=== PATIENT | female | born 1990 | race Caucasian/White ===

== ENCOUNTER 2017-09-26 10:08 | Emergency (ER) | payer MEDICAID, OTHER ==
[2017-09-26 10:52] LABS: BASOPHILS % (AUTO) 0.4 %; EOSINOPHILS # (AUTO) 0.3 10^3/uL (0.0-0.7); EOSINOPHILS % (AUTO) 3.6 %; HGB - HEMOGLOBIN 14.4 g/dL (12.0-16.0); LYMPHOCYTES # (AUTO) 1.9 10^3/uL (1.5-3.5); LYMPHOCYTES % (AUTO) 25.8 %; MEAN CORPUSCULAR HEMOGLOBIN 32.5 pg (27.0-31.0); MEAN CORPUSCULAR HGB CONC 34.5 g/dL (32.0-36.0); MEAN CORPUSCULAR VOLUME 94.1 fL (81.0-99.0); MEAN PLATELET VOLUME 8.3 fL (7.9-10.8); MONOCYTES # (AUTO) 0.5 10^3/uL (0.0-1.0); MONOCYTES % (AUTO) 7.6 %; NEUTROPHILS # (AUTO) 4.5 10^3/uL (1.5-6.6); NEUTROPHILS % (AUTO) 62.6 %; PLT - PLATELET COUNT 260 10^3/uL (130-450); RED BLOOD COUNT 4.44 10^6/uL (4.20-5.40); RED CELL DISTRIBUTION WIDTH 12.7 % (12.0-15.0); WHITE BLOOD COUNT 7.2 x10^3/uL (4.8-10.8)
[2017-09-26 11:04] LABS: ALBUMIN 4.3 g/dL (3.2-5.5); ALBUMIN/GLOBULIN RATIO 1.5 (1.0-2.2); BILIRUBIN,TOTAL 0.6 mg/dL (0.2-1.0); CALCIUM 8.8 mg/dL (8.5-10.3); CREATININE 0.8 mg/dL (0.4-1.0); TOTAL PROTEIN 7.1 g/dL (6.7-8.2)
--- NOTE | 2017-09-26 11:17 | ED Physician Documentation ---
PD HPI CHEST PAIN - Stated complaint Stated Complaint: CHEST/ARM/NECK NUMB - Chief complaint Chief Complaint: Cardiac - History obtained from History obtained from: Patient, Family - History of Present Illness Timing - onset: Today Timing - onset during: Rest Timing - duration: Hours Timing - details: Gradual onset, Still present Quality: Aching Location: Substernal Radiation: Neck, Back, Left upper extremity, Right upper extremity Improved by: Rest Worsened by: Exertion Similar symptoms before: Has not had sx before Recently seen: Not recently seen - Additional information Additional information: 26-year-old previously well female has developed some abdominal cramping and pain with diarrhea 1 week ago. 2 nights ago she developed some chest pressure with radiation to her arms from 2-4am and this resolved. This morning she has developed chest pain/pressure/ache radiating to both arms, back and neck and without modifying factors. She did vomit this morning. She continues to have aching in her arms. She has not had this previously. She is adopted but believes that her biologic mother in her 40's of cardiac arrest and was in poor health. Review of Systems Constitutional: reports: Fatigue. denies: Fever, Chills Eyes: denies: Decreased vision Ears: denies: Ear pain Nose: denies: Congestion, Reviewed and negative Throat: denies: Sore throat Cardiac: reports: Chest pain / pressure. 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: None : None HEENT: None Psych: Anxiety Musculoskeletal: None, Chronic back pain Derm: None - Past Surgical History Past Surgical History: No Ortho: ACL reconstruction /LONG LINE TEAMSTER: section, Tubal ligation - Present Medications Home Medications: Ambulatory Orders Medication Instructions Recorded Confirmed Famotidine [Pepcid] 20 mg 03/26/15 03/26/15 Lorazepam [Ativan] 1 mg PO TID PRN #15 tablet 09/20/15 - Allergies Allergies/Adverse Reactions: Allergies Allergy/AdvReac Type Severity Reaction Status Date / Time ibuprofen Allergy Severe Hives Verified 03/26/15 10:46 ketorolac tromethamine * Allergy Intermediate Itching Verified 03/26/15 10:46 [From Toradol] - Social History Does the pt smoke?: Yes Smoking Status: Current every day smoker Does the pt drink ETOH?: Yes Does the pt have substance abuse?: No - Immunizations Immunizations are current?: Yes - POLST Patient has POLST: No PD ED PE NORMAL - Vitals Vital signs reviewed: Yes - General General: Alert and oriented X 3, No acute distress, Well developed/nourished - HEENT HEENT: Atraumatic, PERRL, EOMI - Neck Neck: Supple, no meningeal sign, No bony TTP - Cardiac Cardiac: RRR, No murmur - Respiratory Respiratory: No respiratory distress, Clear bilaterally - Abdomen Abdomen: Soft, Non tender - Back Back: No CVA TTP, No spinal TTP - Derm Derm: Normal color, Warm and dry, No rash - Extremities Extremities: No deformity, No edema - Neuro Neuro: Alert and oriented X 3, metal organ pipe maker 2-12 intact, No motor deficit, No sensory deficit, Normal speech Eye Opening: Spontaneous Motor: Obeys Commands Verbal: Oriented GCS Score: 15 - Psych Psych: Normal mood, Normal affect Results - Vitals Vitals: Vital Signs - 24 hr 09/26/17 09/26/17 09/26/17 10:12 11:30 11:54 Temperature 36.1 C L Heart Rate 77 70 66 Respiratory 18 16 17 Rate Blood Pressure 112/89 H 101/74 O2 Saturation 100 100 100 09/26/17 12:40 Temperature Heart Rate 71 Respiratory 17 Rate Blood Pressure 114/63 O2 Saturation 100 Oxygen O2 Source Room air - EKG (time done) 1019 Rate: Rate (enter#) (64) Rhythm: NSR Ischemia: Other (Diffuse ST elevation consistent with pericarditis.) Compare to prior EKG: Old EKG unavailable Computer interpretation: Agree with computer 1339 Rate: Rate (enter#) (70) Rhythm: NSR Ischemia: ST elevation c/w repol Compare to prior EKG: Changed from prior EKG (The ST elevations are now less obvious) Computer interpretation: Disagree with computer (This still looks like pericarditis. ) - Labs Labs: Laboratory Tests 09/26/17 09/26/17 09/26/17 10:32 10:32 10:32 WBC 7.2 RBC 4.44 Hgb 14.4 Hct 41.8 MCV 94.1 MCH 32.5 H MCHC 34.5 RDW 12.7 Plt Count 260 MPV 8.3 Neut # 4.5 Lymph # 1.9 [place] # 0.5 Eos # 0.3 Baso # 0.0 Absolute Nucleated RBC 0.00 Nucleated RBC % 0.1 Sodium 136 Potassium 3.6 Chloride 104 Carbon Dioxide 24 Anion Gap 8.0 BUN 12 Creatinine 0.8 Estimated GFR (MDRD) 86 L Glucose 94 Calcium 8.8 Total Bilirubin 0.6 AST 30 ALT 25 Alkaline Phosphatase 60 Troponin I 1.66 H* Total Protein 7.1 Albumin 4.3 Globulin 2.8 Albumin/Globulin Ratio 1.5 Lipase 18 L 09/26/17 12:43 WBC RBC Hgb Hct MCV MCH MCHC RDW Plt Count MPV Neut # Lymph # [place] # Eos # Baso # Absolute Nucleated RBC Nucleated RBC % Sodium Potassium Chloride Carbon Dioxide Anion Gap BUN Creatinine Estimated GFR (MDRD) Glucose Calcium Total Bilirubin AST ALT Alkaline Phosphatase Troponin I 2.74 H* Total Protein Albumin Globulin Albumin/Globulin Ratio Lipase - Rads (name of study) echo report Radiology: Prelim report reviewed (normal study ) Procedures - IVC sono (time) 1035 Bedside IVC sono: IVC measures (cm) (1.67), Euvolemia PD MEDICAL DECISION MAKING - ED course Complexity details: reviewed old records, reviewed results, re-evaluated patient , considered differential, d/w patient, d/w family, d/w beauty sales consultant (Dr. reese university extension specialist of [place] [facility] recomends echo here and potential transfer if needed to [facility]. [facility] is full as is [facility]. Dr. Flores cardiology at [facility] is consulted in the case and recomends transfer. She has been able to review the EKG and recomends transfer but without anticoagulation. ) ED course: 26-year-old female with acute onset of chest pain this morning does not appear ill on evaluation. She does have diffuse ST elevation on her electrocardiogram consistent with pericarditis. As a surprise her troponin was elevated into the determinate range and a repeat troponin even higher. This raises concerns of [id number] and/or myocardial infarction. Her echocardiogram did not demonstrate any wall motion abnormality or pericardial effusion. Dr[facility] Ortega [facility] [place] was kind enough to accept her in transfer and she will need to go through their emergency department there as she will be admitted into the hospitalist service. Repeat electric cardiogram done at the time of transfer shows no progression of ST elevation and the fact looks more benign than the original electric heart exam. Departure - Departure Disposition: 02 Transfer Acute Care Hosp Clinical Impression: Acute myopericarditis Condition: Fair
[2017-09-26] MEDS ORDERED: IBUPROFEN 800 MG TABLET PO STA (12:55)
[2017-09-26] MEDS ORDERED: ASPIRIN CHEW 81 MG TABLET PO STA (13:33)
[2017-09-26 13:43] VITALS: BP 119/76
== END 2017-09-26 13:55 | disposition short-term general hospital (02) ==
LOC: ED 10:08
DX: I30.9 Acute pericarditis, unspecified (principal); K21.9 Gastro-esophageal reflux disease without esophagitis; F17.200 Nicotine dependence, unspecified, uncomplicated
CPT/HCPCS: 36415; 80053; 83690; 84484; 85025; 93005; 93308; 99284; 99285; A9270

== ENCOUNTER 2018-03-20 14:09 | Outpatient (CLI) | payer OTHER | END 2018-03-20 14:10 | disposition critical access hospital (66) | LOC: EMS 14:09 | PROVIDERS: ATTEND Surgery | DX: R07.9 Chest pain, unspecified (principal); R06.02 Shortness of breath | CPT/HCPCS: A0425; A0427 ==

== ENCOUNTER 2018-03-20 14:32 | Emergency (ER) | payer OTHER ==
--- NOTE | 2018-03-20 14:59 | ED Physician Documentation ---
PD HPI CHEST PAIN - Stated complaint Stated Complaint: CP - Chief complaint Chief Complaint: Cardiac - History obtained from History obtained from: Patient - History of Present Illness Timing - onset: Today Timing - onset during: Light activity (while at work, onset of some chest pain, and then she feels she got very anxious about it, given recent experience with the pericarditis, and had some anxiety component to it as well.) Timing - duration: Hours Timing - details: Abrupt onset, Still present Quality: Aching, Sharp, Pain Location: Substernal Radiation: Back Worsened by: Inspiration, Movement Associated symptoms: No: Shortness of air, Nausea, Feeling faint / dizzy, General Weakness, Palpitations Similar symptoms before: Diagnosis (myopericarditis about 2 months ago, and was trasnferred to [place] (closer hospitals were full) due to pericarditis with mildly elevated troponin. She says she had ECHO and was there overnight. On NSAIDs and other med for a month (?colchicine). Loraine better after a week or so.) Recently seen: Emergency Dept Review of Systems Constitutional: denies: Fever, Chills Nose: denies: Rhinorrhea / runny nose, Congestion Throat: denies: Sore throat Cardiac: reports: Chest pain / pressure. 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 : None HEENT: None Psych: Anxiety Musculoskeletal: None, Chronic back pain Derm: None - Past Surgical History Past Surgical History: No Ortho: ACL reconstruction /DENTAL FINANCIAL COORDINATOR: section, Tubal ligation - Present Medications Home Medications: Ambulatory Orders Medication Instructions Recorded Confirmed Famotidine [Pepcid] 20 mg 03/26/15 03/26/15 Lorazepam [Ativan] 1 mg PO TID PRN #15 tablet 09/20/15 Dexamethasone [Decadron] 4 mg PO DAILY #5 tablet 03/20/18 HYDROcod/ACETAM 5/325 [[place] 5/325] 1 tab PO Q6H PRN #15 tablet 03/20/18 Lorazepam [Ativan] 1 mg PO BID PRN #10 tablet 03/20/18 Methocarbamol [Robaxin] 500 mg PO Q6H PRN #25 tablet 03/20/18 - Allergies Allergies/Adverse Reactions: Allergies Allergy/AdvReac Type Severity Reaction Status Date / Time ibuprofen Allergy Severe Hives Verified 03/26/15 10:46 ketorolac tromethamine * Allergy Intermediate Itching Verified 03/26/15 10:46 [From Toradol] - Social History Does the pt smoke?: Yes Smoking Status: Current every day smoker Does the pt drink ETOH?: Yes Does the pt have substance abuse?: No - Immunizations Immunizations are current?: Yes - POLST Patient has POLST: No PD ED PE NORMAL - Vitals Vital signs reviewed: Yes - General General: Alert and oriented X 3, Well developed/nourished, Other (appears uncomfortable with deep breathing) - HEENT HEENT: Pharynx benign - Neck Neck: Supple, no meningeal sign, No adenopathy - Cardiac Cardiac: RRR, No murmur, No rub - Respiratory Respiratory: Clear bilaterally, Other (chestwall tenderness at right sternal border. ) - Abdomen Abdomen: Soft, Non tender - Derm Derm: Normal color, Warm and dry, No rash - Extremities Extremities: Normal ROM s pain, No edema, No calf tenderness / cord - Neuro Neuro: Alert and oriented X 3, No motor deficit, Normal speech Results - Vitals Vitals: Oxygen O2 Source Room air - EKG (time done) 14:43 Rate: Rate (enter#) (100) Rhythm: Sinus tachycardia [place]: Normal Intervals: Normal SC QRS: Normal Ischemia: Normal ST segments. No: ST elevation c/w ischemia, ST elevation c/w repol, ST depression Compare to prior EKG: Changed from prior EKG (this one more normal; no pericardial changes like prior. ) - Labs Labs: Laboratory Tests 03/20/18 03/20/18 03/20/18 15:18 15:18 15:18 WBC 9.9 RBC 4.28 Hgb 14.1 Hct 41.3 MCV 96.4 MCH 32.9 H MCHC 34.1 RDW 13.6 Plt Count 290 MPV 8.2 Neut # (Auto) 6.8 H Lymph # (Auto) 2.1 [place] # (Auto) 0.7 Eos # (Auto) 0.2 Baso # (Auto) 0.1 Absolute Nucleated RBC 0.00 Nucleated RBC % 0.0 ESR 3 Sodium 135 Potassium 3.5 Chloride 100 L Carbon Dioxide 24 Anion Gap 11.0 BUN 13 Creatinine 0.8 Estimated GFR (MDRD) 85 L Glucose 106 H Calcium 9.1 Total Bilirubin 0.5 AST 23 ALT 19 Alkaline Phosphatase 54 Troponin I B-Natriuretic Peptide Total Protein 7.0 Albumin 3.9 Globulin 3.1 Albumin/Globulin Ratio 1.3 Lipase 31 03/20/18 03/20/18 15:18 15:18 WBC RBC Hgb Hct MCV MCH MCHC RDW Plt Count MPV Neut # (Auto) Lymph # (Auto) [place] # (Auto) Eos # (Auto) Baso # (Auto) Absolute Nucleated RBC Nucleated RBC % ESR Sodium Potassium Chloride Carbon Dioxide Anion Gap BUN Creatinine Estimated GFR (MDRD) Glucose Calcium Total Bilirubin AST ALT Alkaline Phosphatase Troponin I < 0.04 B-Natriuretic Peptide 7 Total Protein Albumin Globulin Albumin/Globulin Ratio Lipase - Rads (name of study) chest xray Radiology: Prelim report reviewed (normal) PD MEDICAL DECISION MAKING - ED course Complexity details: considered differential (has costchondral character with chestwall tenderness, but also some pleuritic component. No rub and does not feel worse sitting forward/lying flat, so not clearly recurrent pericarditis. No ECG changes nor troponin leak. Would be treated with NSAIDs as well. She feels anxious with the symptoms and asks for something to relax for sleep at night and PRN anxiety. ), d/w patient - Sepsis Event Vital Signs: Oxygen O2 Source Room air Departure - Departure Disposition: 01 Home, Self Care Clinical Impression: Costochondral chest pain Chest pain Qualifiers: Chest pain type: unspecified Qualified Code(s): R07.9 - Chest pain, unspecified Condition: Stable Record reviewed to determine appropriate education?: Yes Instructions: ED Chest Pain Costochondritis Follow-Up: Yue Luciano ARNP [Primary Care Provider] - Prescriptions: Dexamethasone [Decadron] 4 mg PO DAILY #5 tablet HYDROcod/ACETAM 5/325 [[place] 5/325] 1 tab PO Q6H PRN #15 tablet PRN Reason: Pain Lorazepam [Ativan] 1 mg PO BID PRN #10 tablet PRN Reason: Anxiety Methocarbamol [Robaxin] 500 mg PO Q6H PRN #25 tablet PRN Reason: Spasms Comments: There is no signs of the pericarditis or other significant problems with the heart or lungs based on your tests. You do have tenderness of the chest wall so it seems like inflammation of the cartilage of the chest wall this time. Use Decadron anti-inflammatory daily for 5 more days. Robaxin muscle relaxant if needed for spasms and stiffness. Add hydrocodone if needed for pain. If you do get into a panic episode, you could use Ativan just if needed at those times. Do not take it regularly. Follow-up with your primary care in about a week, call for an appointment. Forms: Activity restrictions Discharge Date/Time: 03/20/18 16:45
[2018-03-20] MEDS ORDERED: MORPHINE 10 MG/ML VIAL IVP STA (15:10)
[2018-03-20] MEDS ORDERED: SODIUM CHLORIDE 0.9% 1,000 ML IV ONE (15:10)
[2018-03-20] MEDS ORDERED: DEXAMETHASONE 10 MG/ML VIAL IVP STA (15:10)
[2018-03-20] MEDS ORDERED: ONDANSETRON 4 MG/2 ML VIAL IVP STA (15:11)
[2018-03-20 15:26] LABS: BASOPHILS # (AUTO) 0.1 10^3/uL (0.0-0.1); BASOPHILS % (AUTO) 1.4 %; EOSINOPHILS # (AUTO) 0.2 10^3/uL (0.0-0.7); EOSINOPHILS % (AUTO) 1.7 %; HGB - HEMOGLOBIN 14.1 g/dL (12.0-16.0); LYMPHOCYTES # (AUTO) 2.1 10^3/uL (1.5-3.5); LYMPHOCYTES % (AUTO) 21.1 %; MEAN CORPUSCULAR HEMOGLOBIN 32.9 pg (27.0-31.0); MEAN CORPUSCULAR HGB CONC 34.1 g/dL (32.0-36.0); MEAN CORPUSCULAR VOLUME 96.4 fL (81.0-99.0); MEAN PLATELET VOLUME 8.2 fL (7.9-10.8); MONOCYTES # (AUTO) 0.7 10^3/uL (0.0-1.0); MONOCYTES % (AUTO) 7.2 %; NEUTROPHILS # (AUTO) 6.8 10^3/uL (1.5-6.6); NEUTROPHILS % (AUTO) 68.6 %; PLT - PLATELET COUNT 290 10^3/uL (130-450); RED BLOOD COUNT 4.28 10^6/uL (4.20-5.40); RED CELL DISTRIBUTION WIDTH 13.6 % (12.0-15.0); WHITE BLOOD COUNT 9.9 x10^3/uL (4.8-10.8)
[2018-03-20 15:34] LABS: ALBUMIN 3.9 g/dL (3.2-5.5); ALBUMIN/GLOBULIN RATIO 1.3 (1.0-2.2); BILIRUBIN,TOTAL 0.5 mg/dL (0.2-1.0); CALCIUM 9.1 mg/dL (8.5-10.3); CREATININE 0.8 mg/dL (0.4-1.0)
--- NOTE | 2018-03-20 15:43 | XRAY Report ---
Procedure Date: 03/20/2018 Accession Number: [id number] / [id number] Procedure: XR - Chest 2 View X-Ray CPT Code: 08764 FULL RESULT: EXAM: CHEST RADIOGRAPHY. EXAM DATE: 03/20/2018 03:31 PM. CLINICAL HISTORY: Chest pain beginning earlier today. COMPARISON: Chest 2 view PA/lateral 03/26/2015. TECHNIQUE: 2 views. FINDINGS: Lungs/Pleura: No focal opacities evident. No pleural effusion. No pneumothorax. Normal volumes. Mediastinum: Heart and mediastinal contours are unremarkable. Other: None. IMPRESSION: Normal 2-view chest radiography. RADIA
[2018-03-20 16:39] VITALS: BP 126/69
== END 2018-03-20 16:45 | disposition home or self-care (01) ==
LOC: EDUNIT# → ED 14:32
DX: M94.0 Chondrocostal junction syndrome [Tietze] (principal); R07.9 Chest pain, unspecified; R00.0 Tachycardia, unspecified
CPT/HCPCS: 36415; 71046; 80053; 83690; 83880; 84484; 85025; 85651; 93005; 96374; 96375; 99283; 99284

== ENCOUNTER 2018-09-17 14:39 | Emergency (ER) | payer OTHER ==
[2018-09-17 15:22] LABS: BASOPHILS # (AUTO) 0.1 10^3/uL (0.0-0.1); BASOPHILS % (AUTO) 0.7 %; EOSINOPHILS # (AUTO) 0.2 10^3/uL (0.0-0.7); EOSINOPHILS % (AUTO) 3.1 %; HGB - HEMOGLOBIN 14.4 g/dL (12.0-16.0); LYMPHOCYTES # (AUTO) 1.9 10^3/uL (1.5-3.5); LYMPHOCYTES % (AUTO) 24.5 %; MEAN CORPUSCULAR HEMOGLOBIN 32.8 pg (27.0-31.0); MEAN CORPUSCULAR HGB CONC 34.6 g/dL (32.0-36.0); MEAN CORPUSCULAR VOLUME 94.7 fL (81.0-99.0); MEAN PLATELET VOLUME 8.6 fL (7.9-10.8); MONOCYTES # (AUTO) 0.5 10^3/uL (0.0-1.0); MONOCYTES % (AUTO) 6.5 %; NEUTROPHILS # (AUTO) 5.1 10^3/uL (1.5-6.6); NEUTROPHILS % (AUTO) 65.2 %; PLT - PLATELET COUNT 293 10^3/uL (130-450); RED BLOOD COUNT 4.38 10^6/uL (4.20-5.40); RED CELL DISTRIBUTION WIDTH 13.1 % (12.0-15.0); WHITE BLOOD COUNT 7.8 x10^3/uL (4.8-10.8)
[2018-09-17 15:31] LABS: ALBUMIN 4.3 g/dL (3.2-5.5); ALBUMIN/GLOBULIN RATIO 1.6 (1.0-2.2); BILIRUBIN,TOTAL 0.2 mg/dL (0.2-1.0); CALCIUM 9.1 mg/dL (8.5-10.3); CREATININE 0.8 mg/dL (0.4-1.0)
--- NOTE | 2018-09-17 16:26 | XRAY Report ---
Reason: chest pain, pain between shoulder blades, lighthea Procedure Date: 09/17/2018 Accession Number: [id number] / [id number] Procedure: XR - Chest 2 View X-Ray CPT Code: 11184 FULL RESULT: EXAM: CHEST RADIOGRAPHY EXAM DATE: 09/17/2018 04:07 PM. CLINICAL HISTORY: Chest pain, pain between shoulder blades, lightheaded. COMPARISON: CHEST 2 VIEW 03/20/2018 3:22 PM. TECHNIQUE: 2 views. FINDINGS: Lungs/Pleura: Clear. No effusion or pneumothorax. Mediastinum: Heart and mediastinal contours are unremarkable. Upper lobe vessels not distended. Other: None. IMPRESSION: Normal 2-view chest radiography. RADIA
[2018-09-17 17:50] VITALS: BP 123/79
== END 2018-09-17 18:08 | disposition left against medical advice (07) ==
LOC: ED 14:39
DX: M25.519 Pain in unspecified shoulder (principal); R42 Dizziness and giddiness; R07.9 Chest pain, unspecified; Z53.21 Procedure and treatment not carried out due to patient leaving prior to being seen by health care provider
CPT/HCPCS: 36415; 71046; 80053; 83690; 84484; 85025; 93005; 99281

== ENCOUNTER 2018-12-13 13:34 | Emergency (ER) | payer OTHER ==
[2018-12-13] MEDS ORDERED: BUTALB/ACETAM/CAFF 50/325/40MG TABLET PO STA (13:53)
[2018-12-13] MEDS ORDERED: CHERRY SYRUP 10 ML UDC PO ONE (13:53)
[2018-12-13] MEDS ORDERED: DEXAMETHASONE 10 MG/ML VIAL PO STA (13:53)
--- NOTE | 2018-12-13 13:57 | ED Physician Documentation ---
PD HPI URI - Stated complaint Stated Complaint: SORE THOAT - Chief complaint Chief Complaint: Heent - History obtained from History obtained from: Patient, Family - History of Present Illness Timing - onset: How many days ago (3-4) Timing duration: Days (3-4) Timing details: Gradual onset Pain level max: 7 Pain level now: 6 Associated symptoms: Fever, Chills, Nasal congestion, Rhinorrhea, Sore throat, Dry cough. No: Dyspnea, NVD Contributing factors: Sick contact (son with strep) Improves by: Rest Worsened by: Activity Recently seen: Not recently seen Review of Systems Constitutional: reports: Fever, Chills GI: denies: Vomiting Skin: denies: Rash Musculoskeletal: denies: Neck pain, Back pain Neurologic: reports: Headache (occasional headaches.) PD PAST MEDICAL HISTORY - Past Medical History Cardiovascular: None Respiratory: None, Shortness of breath Endocrine/Autoimmune: None GI: GERD REGULATORY COORDINATOR: None : None HEENT: None Psych: Anxiety Musculoskeletal: None, Chronic back pain Derm: None - Past Surgical History Past Surgical History: No Ortho: ACL reconstruction /REGULATORY COORDINATOR: section, Tubal ligation - Present Medications Home Medications: Ambulatory Orders Medication Instructions Recorded Confirmed Famotidine [Pepcid] 20 mg 03/26/15 03/26/15 Lorazepam [Ativan] 1 mg PO TID PRN #15 tablet 09/20/15 Dexamethasone [Decadron] 4 mg PO DAILY #5 tablet 03/20/18 HYDROcod/ACETAM 5/325 [[place] 5/325] 1 tab PO Q6H PRN #15 tablet 03/20/18 Lorazepam [Ativan] 1 mg PO BID PRN #10 tablet 03/20/18 Methocarbamol [Robaxin] 500 mg PO Q6H PRN #25 tablet 03/20/18 Butalb/Acetaminophen/Caffeine 1 cap PO Q4H PRN #14 capsule 12/13/18 [Fioricet 50-300-40 mg Capsule] Penicillin V Potassium 500 mg PO Q6HR #40 tablet 12/13/18 - Allergies Allergies/Adverse Reactions: Allergies Allergy/AdvReac Type Severity Reaction Status Date / Time ibuprofen Allergy Severe Hives Verified 12/13/18 13:39 ketorolac tromethamine * Allergy Intermediate Itching Verified 12/13/18 13:39 [From Toradol] - Social History Does the pt smoke?: Yes Smoking Status: Current every day smoker Does the pt drink ETOH?: Yes Does the pt have substance abuse?: No - Immunizations Immunizations are current?: Yes - POLST Patient has POLST: No PD ED PE NORMAL - Vitals Vital signs reviewed: Yes - General General: Alert and oriented X 3, No acute distress, Well developed/nourished - HEENT HEENT: PERRL, Ears normal, Moist mucous membranes, Other (Moderate posterior oropharyngeal erythema without tonsillar exudates. Uvula midline. Normal phonation. No trismus) - Neck Neck: Supple, no meningeal sign - Cardiac Cardiac: RRR, Strong equal pulses - Respiratory Respiratory: No respiratory distress, Clear bilaterally - Abdomen Abdomen: Soft, Non tender, Non distended - Derm Derm: Warm and dry - Neuro Neuro: Alert and oriented X 3 - Psych Psych: Normal mood, Normal affect Results - Vitals Vitals: Vital Signs - 24 hr 12/13/18 13:37 Temperature 35.3 C L Heart Rate 110 H Respiratory 14 Rate Blood Pressure 120/84 H O2 Saturation 100 Oxygen O2 Source Room air - Labs Labs: Laboratory Tests 12/13/18 13:40 Group A Strep Rapid Negative PD MEDICAL DECISION MAKING - ED course Complexity details: reviewed results, considered differential, d/w patient ED course: 28-year-old female with what appears to be a viral syndrome, but given that her son tested positive for group A strep this morning, will cover her with antibi otics as well. Patient is well-appearing, nontoxic. Tolerating p.o. without difficulty. Patient counseled regarding signs and symptoms for which I believe and urgent re-evaluation would be necessary. Patient with good understanding of and agreement to plan and is comfortable going home at this time This document was made in part using voice recognition software. While efforts are made to proofread this document, sound alike and grammatical errors may occur. Departure - Departure Disposition: 01 Home, Self Care Clinical Impression: Strep pharyngitis Condition: Good Instructions: ED Strep Pharyngitis Conf Follow-Up: your,doctor in 1 week if not better [Other] Prescriptions: Penicillin V Potassium 500 mg PO Q6HR #40 tablet Butalb/Acetaminophen/Caffeine [Fioricet 50-300-40 mg Capsule] 1 cap PO Q4H PRN #14 capsule PRN Reason: headache Comments: Take all antibiotics until gone. Return if you worsen. Follow-up with your doctor for further care.
[2018-12-13 14:05] VITALS: BP 139/85
== END 2018-12-13 14:04 | disposition home or self-care (01) ==
LOC: ED 13:34
DX: J02.0 Streptococcal pharyngitis (principal); F17.200 Nicotine dependence, unspecified, uncomplicated
CPT/HCPCS: 87070; 87430; 99283; A9270

== ENCOUNTER 2019-08-12 09:24 | Outpatient (CLI) | payer OTHER ==
[2019-08-12 17:24] LABS: BASOPHILS % (AUTO) 0.6 %; EOSINOPHILS # (AUTO) 0.2 10^3/uL (0.0-0.7); EOSINOPHILS % (AUTO) 2.8 %; LYMPHOCYTES # (AUTO) 2.2 10^3/uL (1.5-3.5); LYMPHOCYTES % (AUTO) 33.4 %; MEAN CORPUSCULAR HEMOGLOBIN 31.7 pg (27.0-31.0); MEAN CORPUSCULAR HGB CONC 32.9 g/dL (32.0-36.0); MEAN CORPUSCULAR VOLUME 96.4 fL (81.0-99.0); MONOCYTES # (AUTO) 0.5 10^3/uL (0.0-1.0); MONOCYTES % (AUTO) 8.1 %; NEUTROPHILS # (AUTO) 3.7 10^3/uL (1.5-6.6); PLT - PLATELET COUNT 331 10^3/uL (130-450); RED BLOOD COUNT 4.42 10^6/uL (4.20-5.40); RED CELL DISTRIBUTION WIDTH 12.4 % (12.0-15.0); WHITE BLOOD COUNT 6.7 x10^3/uL (4.8-10.8)
[2019-08-12 18:06] LABS: ALBUMIN 4.5 g/dL (3.2-5.5); ALBUMIN/GLOBULIN RATIO 1.6 (1.0-2.2); ALKALINE PHOSPHATASE 48 IU/L (42-121); ALT ALANINE AMINOTRANSFERASE 24 IU/L (10-60); AMYLASE 60 U/L (28-100); AST ASPARTATE AMINOTRANSFERASE 25 IU/L (10-42); BILIRUBIN,TOTAL 0.9 mg/dL (0.2-1.0); BUN - BLOOD UREA NITROGEN 13 mg/dL (6-20); CALCIUM 9.2 mg/dL (8.5-10.3); CARBON DIOXIDE - CO2 26 mmol/L (21-32); CHLORIDE 102 mmol/L (101-111); CHOL/HDL RATIO 2.7 (<4.4); CHOLESTEROL 208 mg/dL; CREATININE 0.8 mg/dL (0.4-1.0); GFR - MDRD 85 (>89); GLUCOSE 87 mg/dL (70-100); HDL CHOLESTEROL 76 mg/dL; LDL CHOLESTEROL,CALCULATED 115 mg/dL; LDL/HDL RATIO 1.5 (<4.4); LIPASE 32 U/L (22-51); SODIUM 137 mmol/L (135-145); TOTAL PROTEIN 7.3 g/dL (6.7-8.2); VLDL CHOLESTEROL 17 mg/dL
--- NOTE | 2019-08-13 00:59 | XRAY Report ---
Reason: ABD PAIN, RUQ Procedure Date: 08/12/2019 Accession Number: [id number] / [id number] Procedure: XRS - Abdomen 2 View X-Ray CPT Code: 66801 Final Report FULL RESULT: EXAM: ABDOMEN RADIOGRAPHY. EXAM DATE: 08/12/2019 09:55 AM. CLINICAL HISTORY: Abdominal pain, right upper quadrant. COMPARISON: None. TECHNIQUE: 2 views. FINDINGS: Lung Bases: Unremarkable. Bowel Gas Pattern: Within normal limits. No dilated loops or abnormal fluid levels. Free Air: None. Other: None. IMPRESSION: Normal 2-view abdomen x-ray. RADIA
== END 2019-08-12 09:25 | disposition home or self-care (01) ==
LOC: LAB.S 09:24 → DI.S 09:25
PROVIDERS: ATTEND Registered Nurse
DX: R10.11 Right upper quadrant pain (principal); K21.9 Gastro-esophageal reflux disease without esophagitis
CPT/HCPCS: 36415; 74019; 80053; 80061; 82150; 83690; 83721; 84443; 85025

== ENCOUNTER 2019-08-14 10:47 | Emergency (ER) | payer OTHER ==
[2019-08-14] MEDS ORDERED: LIDOCAINE PATCH 5% TOP STA (12:19)
[2019-08-14] MEDS ORDERED: IBUPROFEN 600 MG TABLET PO STA (12:19)
[2019-08-14] MEDS ORDERED: traMADol 50 MG TABLET PO STA (12:19)
--- NOTE | 2019-08-14 12:22 | ED Physician Documentation ---
PD HPI BACK INJURY - Stated complaint Stated Complaint: LOW BACK PX - History of Present Illness Location: Other (midline low back, buttock) Type of injury: Fall Where injury occurred: Home Timing - onset: Yesterday Timing - duration: Days (1.5) Timing - details: Abrupt onset Severity Comments: moderate Quality: Pain Improved by: Nothing Worsened by: Moving, Palpating, Other (sitting) Associated symptoms: Other (denies numbness, weakness, fever, incontinence, hematuria) Contributing factors: Other (fell down yesterday, ground level fall and [facility] Similar symptoms before: Has not had sx before Recently seen: Not recently seen Review of Systems Ten Systems: 10 systems reviewed and negative Constitutional: reports: Reviewed and negative Cardiac: reports: Reviewed and negative Respiratory: reports: Reviewed and negative GI: reports: Reviewed and negative : reports: Reviewed and negative Skin: reports: Reviewed and negative Musculoskeletal: reports: Back pain Neurologic: reports: Reviewed and negative Endocrine: reports: Reviewed and negative Immunocompromised: reports: Reviewed and negative PD PAST MEDICAL HISTORY - Past Medical History Past Medical History: Yes Cardiovascular: None Respiratory: None, Shortness of breath Endocrine/Autoimmune: None GI: GERD OCCUPANCY SPECIALIST: None : None HEENT: None Psych: Anxiety Musculoskeletal: None, Chronic back pain Derm: None - Past Surgical History Past Surgical History: No Ortho: ACL reconstruction /OCCUPANCY SPECIALIST: section, Tubal ligation - Present Medications Home Medications: Ambulatory Orders Medication Instructions Recorded Confirmed Famotidine [Pepcid] 20 mg 03/26/15 03/26/15 Lorazepam [Ativan] 1 mg PO TID PRN #15 tablet 09/20/15 HYDROcod/ACETAM 5/325 [[place] 5/325] 1 tab PO Q6H PRN #15 tablet 03/20/18 Lorazepam [Ativan] 1 mg PO BID PRN #10 tablet 03/20/18 Methocarbamol [Robaxin] 500 mg PO Q6H PRN #25 tablet 03/20/18 dexAMETHasone [Decadron] 4 mg PO DAILY #5 tablet 03/20/18 Butalb/Acetaminophen/Caffeine 1 cap PO Q4H PRN #14 capsule 12/13/18 [Fioricet 50-300-40 mg Capsule] Penicillin V Potassium 500 mg PO Q6HR #40 tablet 12/13/18 Lidocaine Patch 5% [Lidoderm Patch] 1 patch TOP DAILY PRN #10 patch 08/14/19 Tramadol HCl 50 mg PO Q6HR PRN #15 tablet 08/14/19 - Allergies Allergies/Adverse Reactions: Allergies Allergy/AdvReac Type Severity Reaction Status Date / Time ketorolac tromethamine * Allergy Intermediate Itching Verified 08/14/19 10:53 [From Toradol] - Social History Does the pt smoke?: Yes Smoking Status: Current every day smoker Does the pt drink ETOH?: Yes Does the pt have substance abuse?: No - Immunizations Immunizations are current?: Yes - POLST Patient has POLST: No PD ED PE NORMAL - Vitals Vital signs reviewed: Yes - General General: Alert and oriented X 3, No acute distress, Well developed/nourished - HEENT HEENT: Atraumatic, Moist mucous membranes - Neck Neck: Supple, no meningeal sign, No bony TTP - Cardiac Cardiac: RRR - Respiratory Respiratory: No respiratory distress - Abdomen Abdomen: Soft, Non tender, Non distended - Female Female : Deferred - Rectal Rectal: Deferred - Back Back: No CVA TTP, No spinal TTP - Derm Derm: Normal color, Warm and dry, No rash - Extremities Extremities: No deformity, Normal ROM s pain - Neuro Neuro: Alert and oriented X 3, No motor deficit, No sensory deficit Eye Opening: Spontaneous Motor: Obeys Commands Verbal: Oriented GCS Score: 15 - Psych Psych: Normal mood, Normal affect PD ED PE EXPANDED - Back Back: Other (coccygeal tenderness that is moderate. No L spine tenderness or deformity, full ROM, normal gait, normal strength and sensation) Results - Vitals Vitals: Oxygen O2 Source Room air PD MEDICAL DECISION MAKING - ED course Complexity details: re-evaluated patient, considered differential, d/w patient ED course: ddx- coccyx bruise, coccyx fracture, L spine fracture, back contusion, back strain 28 y/o F with hx and exam as documented, no L spine tenderness or deformity, neuro intact, has some coccygeal tenderness suggestive of a bruise if not small fx. No indication for emergent imaging given there is no change in management for a coccygeal injury. Discussed supportive care with pt for pain managemetna nd return precautions. Departure - Departure Disposition: 01 Home, Self Care Clinical Impression: Coccyx pain Condition: Stable Record reviewed to determine appropriate education?: Yes Instructions: ED Contusion Sacrum Coccyx Follow-Up: Gely Becker ARNP [Primary Care Provider] - As Needed Prescriptions: Tramadol HCl 50 mg PO Q6HR PRN #15 tablet PRN Reason: Pain Lidocaine Patch 5% [Lidoderm Patch] 1 patch TOP DAILY PRN #10 patch PRN Reason: pain Comments: Your examination today is consistent with a bruised coccyx. You should use ice packs, ibuprofen 600mg every 8 hours as well as tylenol for pain. You can also use the prescribed lidoderm patches daily and take tramadol if pain is severe. This will likely hurt for several weeks, up to a month possibly. Follow up with your regular doctor to recheck your symptoms. Return to the ED if you develop numbness, weakness, bladder or bowel incontinence or new concerning symptoms. Discharge Date/Time: 08/14/19 12:37
[2019-08-14 12:37] VITALS: BP 112/84
== END 2019-08-14 12:37 | disposition home or self-care (01) ==
LOC: ED 10:47
DX: M53.3 Sacrococcygeal disorders, not elsewhere classified (principal); F17.200 Nicotine dependence, unspecified, uncomplicated
CPT/HCPCS: 99282; 99284; A9270

== ENCOUNTER 2020-07-28 12:44 | Outpatient (CLI) | payer OTHER | END 2020-07-28 12:45 | disposition home or self-care (01) | LOC: COV 12:44 | PROVIDERS: ATTEND Family Medicine | DX: R05 Cough (principal); R06.02 Shortness of breath; M79.10 Myalgia, unspecified site; R53.83 Other fatigue; J02.9 Acute pharyngitis, unspecified; R09.81 Nasal congestion; R11.2 Nausea with vomiting, unspecified; Z20.828 Contact with and (suspected) exposure to other viral communicable diseases ==

== ENCOUNTER 2020-09-01 15:54 | Outpatient (CLI) | payer OTHER | END 2020-09-01 15:55 | disposition critical access hospital (66) | LOC: EMS 15:54 | PROVIDERS: ATTEND Surgery | DX: R20.0 Anesthesia of skin (principal); R06.82 Tachypnea, not elsewhere classified | CPT/HCPCS: A0425; A0429 ==

== ENCOUNTER 2020-09-01 16:11 | Emergency (ER) | payer OTHER ==
[2020-09-01] MEDS ORDERED: LORazepam 1 MG TABLET PO STA (16:24)
[2020-09-01 17:29] VITALS: BP 103/86
--- NOTE | 2020-09-01 17:48 | ED Physician Documentation ---
History of Present Illness - Stated complaint Stated Complaint: ANXIETY - Chief complaint Chief Complaint: General - History obtained from History obtained from: Patient - History of Present Illness Timing: Today Pain level max: 0 Pain level now: 0 - Additonal information Additional information: 29-year-old female presents to the emergency department stating that she feels like she is having a panic attack. Has a history of anxiety and this feels similar. She states that her hands and face are numb and tingly.Has not taken anything for this today. Nothing makes it better or worse. Review of Systems Constitutional: denies: Fever, Chills Respiratory: denies: Cough GI: denies: Nausea, Vomiting, Diarrhea Skin: denies: Rash Musculoskeletal: denies: Neck pain, Back pain Neurologic: denies: Headache PD PAST MEDICAL HISTORY - Past Medical History Cardiovascular: None Respiratory: None, Shortness of breath Endocrine/Autoimmune: None GI: GERD HOSPICE PLAN ADMINISTRATOR: None : None HEENT: None Psych: Anxiety Musculoskeletal: None, Chronic back pain Derm: None - Past Surgical History Past Surgical History: No Ortho: ACL reconstruction /HOSPICE PLAN ADMINISTRATOR: section, Tubal ligation - Present Medications Home Medications: Ambulatory Orders Medication Instructions Recorded Confirmed LORazepam [Ativan] 1 mg PO BID PRN #7 tablet 09/01/20 - Allergies Allergies/Adverse Reactions: Allergies Allergy/AdvReac Type Severity Reaction Status Date / Time ketorolac tromethamine * Allergy Intermediate Itching Verified 09/01/20 16:19 [From Toradol] - Social History Does the pt smoke?: Yes Smoking Status: Current every day smoker Does the pt drink ETOH?: Yes Does the pt have substance abuse?: No - Immunizations Immunizations are current?: Yes - POLST Patient has POLST: No PD ED PE NORMAL - Vitals Vital signs reviewed: Yes - General General: Alert and oriented X 3, No acute distress - HEENT HEENT: Moist mucous membranes - Neck Neck: Supple, no meningeal sign - Cardiac Cardiac: RRR - Respiratory Respiratory: No respiratory distress, Clear bilaterally - Abdomen Abdomen: Soft, Non tender, Non distended - Derm Derm: Warm and dry - Extremities Extremities: No edema - Neuro Neuro: Alert and oriented X 3 - Psych Psych: Other (Anxious, tachypneic) Results - Vitals Vitals: Vital Signs - 24 hr 12/29/20 12/29/20 16:21 17:29 Temperature 37.4 C Heart Rate 89 82 Respiratory 18 17 Rate Blood Pressure 98/82 H 103/86 H O2 Saturation 100 99 Oxygen O2 Source Room air PD MEDICAL DECISION MAKING - ED course Complexity details: re-evaluated patient, considered differential, d/w patient ED course: 29-year-old female with a panic attack today. Feels much better after Ativan. Symptoms resolved. Will prescribe a small amount of Ativan for home. Patient i s well-appearing, nontoxic. Afebrile. No evidence of acute coronary syndrome. No evidence of PE, pneumothorax. Patient counseled regarding signs and symptoms for which I believe and urgent re-evaluation would be necessary. Patient with good understanding of and agreement to plan and is comfortable going home at this time This document was made in part using voice recognition software. While efforts are made to proofread this document, sound alike and grammatical errors may occur. Departure - Departure Disposition: 01 Home, Self Care Clinical Impression: Anxiety Condition: Good Instructions: ED Panic Attack Follow-Up: Your,doctor in 1 week [Other] Prescriptions: LORazepam [Ativan] 1 mg PO BID PRN #7 tablet PRN Reason: Anxiety Comments: You can use the Ativan as needed for anxiety. Follow-up with your doctor for further care. Do not drive or operate heavy machinery while taking the Ativan. Return if you worsen Discharge Date/Time: 09/01/20 18:11
== END 2020-09-01 18:11 | disposition home or self-care (01) ==
LOC: EDUNIT# → ED 16:11
DX: F41.0 Panic disorder [episodic paroxysmal anxiety] (principal); F17.200 Nicotine dependence, unspecified, uncomplicated
CPT/HCPCS: 99283; 99284; J8499

== ENCOUNTER 2020-11-16 23:16 | Outpatient (CLI) | payer OTHER | END 2020-11-16 23:17 | disposition EMS.NT | LOC: EMS 23:16 | DX: S09.93XA Unspecified injury of face, initial encounter (principal); Y35.93XA Legal intervention, means unspecified, suspect injured, initial encounter ==

== ENCOUNTER 2020-11-17 01:44 | Emergency (ER) | payer OTHER ==
[2020-11-17] MEDS ORDERED: ACETAMINOPHEN 325 MG TABLET PO STA (01:58)
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
[2020-11-17 02:01] VITALS: BP 103/72
== END 2020-11-17 02:10 | disposition home or self-care (01) ==
LOC: ED 01:44
DX: S00.83XA Contusion of other part of head, initial encounter (principal); Y35.813A Legal intervention involving manhandling, suspect injured, initial encounter; F17.200 Nicotine dependence, unspecified, uncomplicated
CPT/HCPCS: 99282; A9270

== ENCOUNTER 2020-11-25 08:20 | Emergency (ER) | payer OTHER ==
[2020-11-25] MEDS ORDERED: ACETAMINOPHEN 325 MG TABLET PO STA (08:55)
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
--- NOTE | 2020-11-25 09:31 | CT Report ---
PROCEDURE: HEAD WO INDICATIONS: Concussive symptoms status post ground-level fall one week prior with right facial brui sing. TECHNIQUE: Noncontrast 4.5 mm thick angled axial sections acquired from the foramen magnum to the vertex. For r adiation dose reduction, the following was used: automated exposure control, adjustment of mA and/or kV according to patient size. COMPARISON: None. FINDINGS: Image quality: Excellent. CSF spaces: Basal cisterns are patent. No extra-axial fluid collections. Ventricles are normal in size and shape. Brain: No intracranial hemorrhage, mass, or mass effect. Cassidy-white matter interface is normal. Skull and face: There is mild right supraorbital soft tissue swelling and subcutaneous edema. Calvar ium and visualized facial bones are intact, without suspicious lesions. Sinuses: Visualized sinuses and mastoids are clear. IMPRESSION: 1. No acute intracranial abnormality. Reviewed by: Abdon Gustafson MD on 11/25/2020 9:30 AM PDT Approved by: Abdon Gustafson MD on 11/25/2020 9:30 AM PDT Station ID: [id number]
[2020-11-25 10:41] VITALS: BP 103/74
== END 2020-11-25 10:39 | disposition home or self-care (01) ==
LOC: ED 08:20
DX: S06.0X0A Concussion without loss of consciousness, initial encounter (principal); S00.83XA Contusion of other part of head, initial encounter; S00.11XA Contusion of right eyelid and periocular area, initial encounter; S60.211A Contusion of right wrist, initial encounter; Y35.813A Legal intervention involving manhandling, suspect injured, initial encounter; F17.200 Nicotine dependence, unspecified, uncomplicated
CPT/HCPCS: 70450; 99281; 99284; A9270

== ENCOUNTER 2021-06-01 00:40 | Outpatient (CLI) | payer OTHER | END 2021-06-01 00:41 | disposition critical access hospital (66) | LOC: EMS 00:40 | DX: R41.82 Altered mental status, unspecified (principal); Z72.89 Other problems related to lifestyle | CPT/HCPCS: A0425; A0429 ==

== ENCOUNTER 2021-06-01 00:55 | Emergency (ER) | payer OTHER ==
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
[2021-06-01 06:42] VITALS: BP 101/67
== END 2021-06-01 07:34 | disposition home or self-care (01) ==
LOC: EDUNIT# → ED 00:55
DX: R41.82 Altered mental status, unspecified (principal); F17.200 Nicotine dependence, unspecified, uncomplicated
CPT/HCPCS: 80048; 80320; 85025; 99283

== ENCOUNTER 2021-10-28 01:59 | Outpatient (CLI) | payer OTHER | END 2021-10-28 02:00 | disposition critical access hospital (66) | LOC: EMS 01:59 | DX: T43.212A Poisoning by selective serotonin and norepinephrine reuptake inhibitors, intentional self-harm, initial encounter (principal); R11.2 Nausea with vomiting, unspecified; R20.0 Anesthesia of skin | CPT/HCPCS: A0425; A0427 ==

== ENCOUNTER 2021-10-28 02:40 | Emergency (ER) | payer OTHER ==
[2021-10-28 03:04] LABS: BASOPHILS % (AUTO) 0.6 %; EOSINOPHILS # (AUTO) 0.2 10^3/uL (0.0-0.7); EOSINOPHILS % (AUTO) 2.9 %; HCT - HEMATOCRIT 40.5 % (37.0-47.0); HGB - HEMOGLOBIN 13.6 g/dL (12.0-16.0); LYMPHOCYTES # (AUTO) 2.8 10^3/uL (1.5-3.5); MEAN CORPUSCULAR HEMOGLOBIN 31.9 pg (27.0-31.0); MEAN CORPUSCULAR HGB CONC 33.6 g/dL (32.0-36.0); MEAN CORPUSCULAR VOLUME 94.8 fL (81.0-99.0); MEAN PLATELET VOLUME 9.7 fL (7.9-10.8); MONOCYTES # (AUTO) 0.3 10^3/uL (0.0-1.0); MONOCYTES % (AUTO) 5.2 %; NEUTROPHILS % (AUTO) 37.3 %; PLT - PLATELET COUNT 319 10^3/uL (130-450); RED BLOOD COUNT 4.27 10^6/uL (4.20-5.40); RED CELL DISTRIBUTION WIDTH 12.2 % (12.0-15.0); WHITE BLOOD COUNT 5.2 x10^3/uL (4.8-10.8)
[2021-10-28 03:23] LABS: ACETAMINOPHEN < 10 ug/mL (10-30); ALBUMIN 4.1 g/dL (3.2-5.5); ALBUMIN/GLOBULIN RATIO 1.6 (1.0-2.2); ALKALINE PHOSPHATASE 49 IU/L (42-121); ALT ALANINE AMINOTRANSFERASE 18 IU/L (10-60); AST ASPARTATE AMINOTRANSFERASE 21 IU/L (10-42); BILIRUBIN,TOTAL 0.4 mg/dL (0.2-1.0); BUN - BLOOD UREA NITROGEN 11 mg/dL (6-20); CREATININE 0.7 mg/dL (0.4-1.0); ETOH - ETHANOL 176.7 mg/dL; GFR - MDRD 98 (>89); LIPASE 184 U/L (22-51); SALICYLATE < 6.0 mg/dL; TOTAL PROTEIN 6.6 g/dL (6.7-8.2)
[2021-10-28] MEDS ORDERED: SODIUM CHLORIDE 0.9% 1,000 ML IV STA (03:23)
[2021-10-28 03:26] LABS: MUDS CUTOFF CONCENTRATIONS CUTOFF CONC BELOW:
[2021-10-28 03:28] LABS: BILIRUBIN,URINE NEGATIVE (NEGATIVE); GLUCOSE, URINE (UA) NEGATIVE (NEGATIVE); KETONES,URINE (UA) NEGATIVE (NEGATIVE); LEUKOCYTE ESTERASE, URINE NEGATIVE (NEGATIVE); NITRITE,URINE NEGATIVE (NEGATIVE); OCCULT BLOOD,URINE NEGATIVE (NEGATIVE); PROTEIN,URINE NEGATIVE (NEGATIVE); UROBILINOGEN,URINE 0.2 (NORMAL) E.U./dL (NORMAL)
[2021-10-28 03:29] LABS: CLARITY,URINE CLEAR (CLEAR)
[2021-10-28 03:32] LABS: CALCIUM 8.4 mg/dL (8.5-10.3); CARBON DIOXIDE - CO2 20 mmol/L (21-32); CHLORIDE 107 mmol/L (101-111); GLUCOSE 86 mg/dL (70-100); POTASSIUM 3.5 mmol/L (3.5-5.0); SODIUM 141 mmol/L (135-145)
[2021-10-28 03:38] LABS: AMPHETAMINE SCREEN,URINE NEGATIVE (NEGATIVE); BARBITURATE SCREEN,UR NEGATIVE (NEGATIVE); BENZODIAZEPINES SCREEN, URINE NEGATIVE (NEGATIVE); COCAINE SCREEN URINE NEGATIVE (NEGATIVE); METHADONE SCREEN, URINE NEGATIVE (NEGATIVE); METHAMPHETAMINES SCREEN, URINE NEGATIVE (NEGATIVE); OPIATE SCREEN, URINE NEGATIVE (NEGATIVE); OXYCODONE SCREEN, URINE NEGATIVE (NEGATIVE); PROPOXYPHENE SCREEN, URINE NEGATIVE (NEGATIVE); THC CANNABINOID SCREEN, URINE NEGATIVE (NEGATIVE); TRICYCLIC ANTIDEPRESSANT,URINE NEGATIVE (NEGATIVE)
--- NOTE | 2021-10-28 04:22 | ED Physician Documentation ---
History of Present Illness - Stated complaint Stated Complaint: OD - Chief complaint Chief Complaint: MHE - History obtained from History obtained from: Patient - Additonal information Additional information: 30yF with pmh anxiety and depression presents s/p intentional overdose of duloxetine and wine. patient states she had almost a full bottle of wine then took 10 or 11 60mg duloxetine "because I wanted to relax". denies SI/HI/AVH. patient states she regrets taking the pills. currently in a custody/divorce gregory over 3 children, with significant home stressors. asymptomatic at present, but ems reports she vomited en route. Review of Systems Unable to obtain: Intoxicated PD PAST MEDICAL HISTORY - Past Medical History Past Medical History: Yes Cardiovascular: None Respiratory: None, Shortness of breath Endocrine/Autoimmune: None GI: GERD GENERAL OPERATIONS AGENT: None : None HEENT: None Psych: Anxiety Musculoskeletal: None, Chronic back pain Derm: None - Past Surgical History Past Surgical History: No Ortho: ACL reconstruction /GENERAL OPERATIONS AGENT: section, Tubal ligation - Present Medications Home Medications: Ambulatory Orders Medication Instructions Recorded Confirmed DULoxetine [Cymbalta] 20 mg PO DAILY 06/01/21 06/01/21 hydrOXYzine HCL [Hydroxyzine HCl] 10 mg PO DAILY 06/01/21 06/01/21 Famotidine [Pepcid] 20 mg PO BID 10/28/21 10/28/21 - Allergies Allergies/Adverse Reactions: Allergies Allergy/AdvReac Type Severity Reaction Status Date / Time ketorolac tromethamine * Allergy Intermediate Itching Verified 10/28/21 03:04 [From Toradol] - Social History Does the pt smoke?: Yes Smoking Status: Current every day smoker Does the pt drink ETOH?: Yes Does the pt have substance abuse?: No - Immunizations Immunizations are current?: Yes - POLST Patient has POLST: No PD ED PE NORMAL - Vitals Vital signs reviewed: Yes - General General: Alert and oriented X 3, No acute distress, Well developed/nourished, Other (clinically intoxicated) - HEENT HEENT: Atraumatic, PERRL, EOMI - Neck Neck: Supple, no meningeal sign - Cardiac Cardiac: RRR - Respiratory Respiratory: No respiratory distress, Clear bilaterally - Abdomen Abdomen: Non tender, Non distended - Derm Derm: Normal color, Warm and dry - Extremities Extremities: No deformity - Neuro Neuro: Alert and oriented X 3, No motor deficit, No sensory deficit - Psych Psych: Normal mood, Normal affect, Other (clinically intoxicated) Results - Vitals Vitals: Vital Signs - 24 hr 10/28/21 10/28/21 10/28/21 03:00 03:39 04:05 Temperature 36.1 C L Heart Rate 105 H 92 100 Respiratory 20 18 20 Rate Blood Pressure 99/71 105/76 96/58 L O2 Saturation 100 99 96 Oxygen O2 Source Room air - EKG (time done) 0257 Rate: Rate (enter#) Rhythm: NSR [place]: Normal Intervals: Normal [place] QRS: Normal Ischemia: Normal ST segments - Labs Labs: Laboratory Tests 10/28/21 10/28/21 10/28/21 03:00 03:00 03:00 WBC 5.2 RBC 4.27 Hgb 13.6 Hct 40.5 MCV 94.8 MCH 31.9 H MCHC 33.6 RDW 12.2 Plt Count 319 MPV 9.7 Neut # (Auto) 2.0 Lymph # (Auto) 2.8 [place] # (Auto) 0.3 Eos # (Auto) 0.2 Baso # (Auto) 0.0 Absolute Nucleated RBC 0.00 Nucleated RBC % 0.0 Sodium 141 Potassium 3.5 Chloride 107 Carbon Dioxide 20 L Anion Gap 14.0 H BUN 11 Creatinine 0.7 Estimated GFR (MDRD) 98 Glucose 86 Calcium 8.4 L Magnesium Total Bilirubin 0.4 AST 21 ALT 18 Alkaline Phosphatase 49 Total Protein 6.6 L Albumin 4.1 Globulin 2.5 Albumin/Globulin Ratio 1.6 Lipase 184 H TSH 5.78 H Urine Color Urine Clarity Urine pH Ur Specific [place] Urine Protein Urine Glucose (UA) Urine Ketones Urine Occult Blood Urine Nitrite Urine Bilirubin Urine Urobilinogen Ur Leukocyte Esterase Ur Microscopic Review Urine Culture Comments Salicylates < 6.0 Urine Opiates Screen Ur Oxycodone Screen Urine Methadone Screen Ur Propoxyphene Screen Acetaminophen < 10 L Ur Barbiturates Screen Ur Tricyclics Screen Ur Phencyclidine Scrn Ur Amphetamine Screen U Methamphetamines Scrn U Benzodiazepines Scrn Urine Cocaine Screen U Cannabinoids Screen Ethyl Alcohol 176.7 10/28/21 10/28/21 03:00 03:21 WBC RBC Hgb Hct MCV MCH MCHC RDW Plt Count MPV Neut # (Auto) Lymph # (Auto) [place] # (Auto) Eos # (Auto) Baso # (Auto) Absolute Nucleated RBC Nucleated RBC % Sodium Potassium Chloride Carbon Dioxide Anion Gap BUN Creatinine Estimated GFR (MDRD) Glucose Calcium Magnesium 2.1 Total Bilirubin AST ALT Alkaline Phosphatase Total Protein Albumin Globulin Albumin/Globulin Ratio Lipase TSH Urine Color YELLOW Urine Clarity CLEAR Urine pH 7.0 Ur Specific [place] 1.015 Urine Protein NEGATIVE Urine Glucose (UA) NEGATIVE Urine Ketones NEGATIVE Urine Occult Blood NEGATIVE Urine Nitrite NEGATIVE Urine Bilirubin NEGATIVE Urine Urobilinogen 0.2 (NORMAL) Ur Leukocyte Esterase NEGATIVE Ur Microscopic Review NOT INDICATED Urine Culture Comments NOT INDICATED Salicylates Urine Opiates Screen NEGATIVE Ur Oxycodone Screen NEGATIVE Urine Methadone Screen NEGATIVE Ur Propoxyphene Screen NEGATIVE Acetaminophen Ur Barbiturates Screen NEGATIVE Ur Tricyclics Screen NEGATIVE Ur Phencyclidine Scrn NEGATIVE Ur Amphetamine Screen NEGATIVE U Methamphetamines Scrn NEGATIVE U Benzodiazepines Scrn NEGATIVE Urine Cocaine Screen NEGATIVE U Cannabinoids Screen NEGATIVE Ethyl Alcohol PD MEDICAL DECISION MAKING - ED course ED course: Per toxicology, plan to monitor patient 12 hours from time of ingestion (midnight last night) prior to medical clearance. patient to be endorsed to incoming daytime emergency MD.
[2021-10-28] MEDS ORDERED: LACTATED RINGERS 1,000 ML IV STA (08:02)
[2021-10-28] MEDS ORDERED: ONDANSETRON 4 MG/2 ML VIAL IVP STA (10:39)
--- NOTE | 2021-10-28 15:00 | ED Physician Documentation ---
ED Addendum - Addendum Addendum: 10/28/21 14:58 The patient remained stable and vital signs heart rhythm and repeat EKG was good. She was pleasant and interacting well with staff here. She did not have any suicidal ideation briefly talking to her. Social work talked with her as well and she denied any suicidal ongoing ideation. Still has depressed affect and is wanting to follow with therapy. She safety contracted with social work and the patient's father was here and was going to be having her stay with him and she would he would watch her mood and be supportive at home. They are both agreeable on this. Social work felt the patient was stable and not at risk of further self-harm. She will be discharged from the ER. Disposition: The patient is discharged stable to home. Diagnoses: 1. Acute overdose of SSRI medication 2. Depression with suicidal ideation 3. Impulsive behavior.
[2021-10-28 15:02] VITALS: BP 108/75
== END 2021-10-28 15:13 | disposition home or self-care (01) ==
LOC: ED 02:40
DX: T43.222A Poisoning by selective serotonin reuptake inhibitors, intentional self-harm, initial encounter (principal); F32.A Depression, unspecified; F17.200 Nicotine dependence, unspecified, uncomplicated
CPT/HCPCS: 36415; 80053; 80306; 80307; 80320; 80329; 81003; 83690; 83735; 84443; 85025; 93005; 96361; 96374; 99283; 99284; J7120; 81001; 87086

== ENCOUNTER 2022-05-18 18:38 | Outpatient (CLI) | payer OTHER ==
--- NOTE | 2022-05-18 18:55 | XRAY Report ---
PROCEDURE: Knee 3 View RT INDICATIONS: RIGHT KNEE PAIN TECHNIQUE: 3 views of the right knee(s) were acquired. COMPARISON: No prior radiographs available for review FINDINGS: Bones: Postsurgical changes of prior anterior cruciate ligament reconstruction. No evidence for hard gutierrez complication. No acute fractures or dislocations. No suspicious bony lesions. Soft tissues: No joint effusion. No suspicious soft tissue calcifications. IMPRESSION: Right knee without acute fracture or malalignment. Postsurgical changes of prior anterior cruciate ligament reconstruction. Reviewed by: Darren Bianchi MD on 05/18/2022 6:54 PM PDT Approved by: Darren Bianchi MD on 05/18/2022 6:54 PM PDT Station ID: [id number]
== END 2022-05-18 18:39 | disposition home or self-care (01) ==
LOC: DI.S 18:38
PROVIDERS: ATTEND Physician Assistant Medical
DX: M25.561 Pain in right knee (principal)

== ENCOUNTER 2022-05-19 08:16 | Outpatient (CLI) | payer OTHER ==
[2022-05-19 14:37] LABS: BASOPHILS % (AUTO) 0.6 %; EOSINOPHILS # (AUTO) 0.2 10^3/uL (0.0-0.7); EOSINOPHILS % (AUTO) 3.9 %; HCT - HEMATOCRIT 40.4 % (37.0-47.0); HGB - HEMOGLOBIN 13.4 g/dL (12.0-16.0); LYMPHOCYTES # (AUTO) 2.3 10^3/uL (1.5-3.5); LYMPHOCYTES % (AUTO) 43.9 %; MEAN CORPUSCULAR HEMOGLOBIN 30.8 pg (27.0-31.0); MEAN CORPUSCULAR HGB CONC 33.2 g/dL (32.0-36.0); MEAN CORPUSCULAR VOLUME 92.9 fL (81.0-99.0); MEAN PLATELET VOLUME 10.4 fL (7.9-10.8); MONOCYTES # (AUTO) 0.4 10^3/uL (0.0-1.0); MONOCYTES % (AUTO) 7.5 %; NEUTROPHILS # (AUTO) 2.3 10^3/uL (1.5-6.6); NEUTROPHILS % (AUTO) 43.9 %; PLT - PLATELET COUNT 313 10^3/uL (130-450); RED BLOOD COUNT 4.35 10^6/uL (4.20-5.40); RED CELL DISTRIBUTION WIDTH 12.7 % (12.0-15.0); WHITE BLOOD COUNT 5.2 x10^3/uL (4.8-10.8)
[2022-05-19 14:43] LABS: ALBUMIN/GLOBULIN RATIO 1.5 (1.0-2.2); BILIRUBIN,TOTAL 0.4 mg/dL (0.2-1.0); CALCIUM 9.1 mg/dL (8.5-10.3); CREATININE 0.7 mg/dL (0.4-1.0); POTASSIUM 4.2 mmol/L (3.5-5.0); TOTAL PROTEIN 6.6 g/dL (6.7-8.2)
== END 2022-05-19 08:17 | disposition home or self-care (01) ==
LOC: LAB.S 08:16
PROVIDERS: ATTEND Physician Assistant Medical
DX: Z51.81 Encounter for therapeutic drug level monitoring (principal); R22.41 Localized swelling, mass and lump, right lower limb; M79.661 Pain in right lower leg; Z79.899 Other long term (current) drug therapy
CPT/HCPCS: 36415; 80053; 85025; 85379

== ENCOUNTER 2022-06-13 08:00 | Outpatient (CLI) | payer OTHER ==
--- NOTE | 2022-06-13 16:56 | XRAY Report ---
PROCEDURE: Knee 3 View RT INDICATIONS: RIGHT KNEE PAIN TECHNIQUE: 3 views of the right knee(s) were acquired. COMPARISON: None. FINDINGS: ACL reconstruction changes. Normal patellar height and position. No fracture. No significant joint sp paulino narrowing or degenerative change. Regional soft tissues unremarkable. IMPRESSION: ACL reconstruction changes with no significant abnormality demonstrated otherwise. Reviewed by: Rl Alexander MD on 06/13/2022 4:55 PM PDT Approved by: Rl Alexander MD on 06/13/2022 4:55 PM PDT Station ID: [id number]
== END 2022-06-13 23:59 | disposition home or self-care (01) ==
LOC: DI.WOS 08:00
PROVIDERS: ATTEND Physician Assistant
DX: M25.561 Pain in right knee (principal); M79.661 Pain in right lower leg

== ENCOUNTER 2022-06-21 07:11 | Outpatient (CLI) | payer OTHER ==
--- NOTE | 2022-06-23 12:52 | MRI Report ---
PROCEDURE: KNEE WO - RT INDICATIONS: RIGHT KNEE PAIN TECHNIQUE: Noncontrast sagittal PD fast spin echo and T2 fast spin echo with fat saturation, sagittal 3-D spoile d GE with fat saturation; coronal T1 spin echo and PD fast spin echo with fat saturation, and axial P D fast spin echo with fat saturation through the knee. COMPARISON: Right knee radiographs 06/13/2022. Right knee MRI 08/10/2007. FINDINGS: Image quality: Excellent. Anterior cruciate ligament: Postsurgical changes are seen from prior anterior cruciate ligament sher nstruction. The femoral tunnel is located at the 12 o'clock position in the intercondylar notch with the orifice approximately 5 mm from the intersection of the posterior femoral cortex with Blumensaat' s line. The tibial tunnel is located in the middle third of the central tibial plateau. The anterior cruciate ligament graft is intact. There is no significant arthrofibrosis. Posterior cruciate ligament: Intact. Medial collateral ligament: Intact. Lateral collateral ligament: Intact. Medial meniscus: Micrometallic artifact is seen in the region of the body and posterior horn of the medial meniscus that is likely related to prior meniscal repair. No uptake of [place] joint fluid is s een to suggest a recurrent meniscal tear. Lateral meniscus: Intact. Medial and lateral tendons: The semimembranosus tendon insertions appear intact. Visualized portion s of the pes anserinus tendons appear normal. The popliteus tendon appears intact. Iliotibial band appears normal. Anterior structures: The quadriceps and patellar tendons appear intact. Patellar alignment is acosta l. No femoral trochlear dysplasia or ventral trochlear prominence. No edema in the infrapatellar fa t pad. Bones: No acute trabecular bone injury or fracture. Medial femorotibial cartilage: Intact. Lateral femorotibial cartilage: Intact. Patellofemoral cartilage: Intact. Soft tissues: There is a physiologic amount of joint fluid. There is no medial popliteal cyst. The musculature surrounding the knee is normal in bulk. A large lobular cyst is seen posterior to the int ercondylar notch extending to the posterior joint capsule measuring approximately 4.3 x 1.9 x 2.0 cm. IMPRESSION: 1.Postsurgical changes from anterior cruciate ligament reconstruction with tunnel positioning as desc ribed in the body the report. The anterior cruciate ligament graft is intact. 2.Suspected prior medial meniscal repair without recurrent meniscal tearing identified. 3.Large lobular cyst posterior to the intercondylar notch measuring up to 4.3 cm, which is most likel y a pericapsular ganglion cyst versus possibly a pericruciate or parameniscal cyst. Reviewed by: Krishna Gleason MD on 06/23/2022 12:50 PM PDT Approved by: Krishna Gleason MD on 06/23/2022 12:50 PM PDT Station ID: [id number]
== END 2022-06-21 07:12 | disposition home or self-care (01) ==
LOC: DI 07:11
PROVIDERS: ATTEND Registered Nurse
DX: M25.861 Other specified joint disorders, right knee (principal); M25.561 Pain in right knee